=== PATIENT | female | born 1980 | race Hispanic/Latino ===

== ENCOUNTER 2017-08-29 22:40 | Emergency (ER) | payer OTHER ==
[2017-08-29 22:52] VITALS: BP 130/85; PULSE 96; TEMP 98.2
--- NOTE | 2017-08-29 23:14 | C.PDOC ---
History Of Present Illness 37 year old female presents to the ED for evaluation of a laceration. Patient reports that while washing dishes today she accidentally cut her right 4th finger. Patient denies weakness, numbness, fever, chills, nausea. Time Seen by Provider: 08/29/17 23:02 Chief Complaint (Nursing): Finger,Hand,&Wrist History Per: Patient History/Exam Limitations: no limitations Onset/Duration Of Symptoms: Hrs Current Symptoms Are (Timing): Still Present Quality: "Pain" Recent travel outside of the [place]: No Additional History Per: Patient Past Medical History Reviewed: Historical Data, Nursing Documentation, Vital Signs Vital Signs: Last Vital Signs Temp 98.2 F 08/29/17 23:39 Pulse 96 H 08/29/17 23:39 Resp 20 08/29/17 23:39 BP 130/85 08/29/17 23:39 Pulse Ox 96 08/30/17 00:07 - Medical History PMH: Hypothyroidism Denies: Chronic Kidney Disease Surgical History: Tonsillectomy Family History: States: Unknown Family Hx - Social History Hx Alcohol Use: Yes Hx Substance Use: No - Immunization History Hx Tetanus Toxoid Vaccination: No Hx Influenza Vaccination: No Hx Pneumococcal Vaccination: No Review Of Systems Cardiovascular: Negative for: Palpitations Musculoskeletal: Positive for: Hand Pain Skin: Positive for: Other (laceration) Neurological: Negative for: Weakness, Numbness Physical Exam - Physical Exam Appears: Non-toxic, No Acute Distress Skin: Normal Color, Warm, Dry Head: Atraumatic, Normacephalic Eye(s): bilateral: Normal Inspection Extremity: Normal ROM, No Tenderness, Capillary Refill (< 2 seconds), No Deformity, No Swelling, Other (0.5 cm superficial laceration right 4th PIP. no active bleeding, no foreign body, no apparent tendon injury) Pulses: Left Radial: Normal, Right Radial: Normal Neurological/Psych: Oriented x3, Normal Speech, Normal Motor, Normal Sensation Gait: Steady ED Course And Treatment O2 Sat by Pulse Oximetry: 96 (ON RA) Pulse Ox Interpretation: Normal Progress Note: Patient will follow up with PMD Laceration - Laceration Repair right 4th finger Wound Length (In cm): 0.5 Description Of Wound: Linear Wound Cleansed With: Sterile Saline Wound Examination: Irrigated With Saline Wound Closure: Steri Strips (X2), Skin Glue Wound Complexity: Simple Disposition Counseled Patient/Family Regarding: Diagnosis - Disposition Referrals: [facility] [Outside] Disposition: HOME/ ROUTINE Disposition Time: 23:12 Condition: STABLE Additional Instructions: Heep wound dry x 2 days Follw up with PMD Return to oER if worse\\ Instructions: Laceration Repair With Glue (DC) Forms: [facility] (Indonesian) - Clinical Impression Clinical Impression: Finger laceration - 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 - Scribe Statement The provider has reviewed the documentation as recorded by the Scribe Cory Ye All medical record entries made by the Scribe were at my direction and personally dictated by me. I have reviewed the chart and agree that the record accurately reflects my personal performance of the history, physical exam, medical decision making, and the department course for this patient. I have also personally directed, reviewed, and agree with the discharge instructions and disposition.
[2017-08-29 23:47] VITALS: RESP 20
[2017-08-30 00:04] VITALS: O2SAT 96
== END 2017-08-29 23:50 | disposition home or self-care (01) ==
LOC: C.ER 22:40
DX: S61.214A Laceration without foreign body of right ring finger without damage to nail, initial encounter (principal); W25.XXXA Contact with sharp glass, initial encounter